=== PATIENT | male | born 1990 | race Caucasian/White ===

== ENCOUNTER 2024-10-21 08:35 | Day surgery (SDC) | payer BC, SELFPAY ==
--- OUTSIDE RECORDS SUMMARY | 2024-10-07 15:08 | XMS_ITS | Clinical Summary ---
Author Organization [facility] Address [address] [facility] [address] [place] [id number] Phone Care Team Providers Care Laborer Syrup Machine Name Role Phone Fred Benítez MD Primary Care Provider Allergies Active Allergy Reactions Criticality Noted Date Comments Bactrim (Sulfamethoxazole-Trimethoprim) Hives 08/13/2014 Medications fluticasone propionate (FLONASE) 50 mcg/actuation nasal spray 2 sprays by Nasal route. Active loratadine-pseud oephedrine (CLARITIN-D 24-HOUR) 10-240 mg per 24 hr tablet Take 1 tablet by mouth. Active multivitamin per tabletIndication s:Annual physical exam Take 1 tablet by mouth daily. 90 tablet 3 08/15/2021 Active cholecalciferol (VITAMIN D3) 25 MCG (1,000 unit) tabletIndication s:Annual physical exam Take 1 tablet (1,000 Units total) by mouth daily. 08/20/2023 Active Active Problems Patient Care Coordination No te Formatting of this note migh t be different from the original. CP 08/20/24 BH 08/20/24? 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 Problem Noted Date Diagnosed Date Bilateral impacted cerumen 08/20/2023 Allergic rhinitis 08/12/2020 Low vitamin D level 08/12/2020 Overview (08/12/2020): 21 08/12/2020 Multiple benign melanocytic nevi 12/12/2015 Overview (08/16/2022): saw derm in [place] Encounters Date Type Department Care Team Description 08/20/2024 9:00 AM EDT Office Visit [facility] [address] [place] [address] Fred Benítez MD Annual physical exam (Primary Dx) 08/18/2024 8:20 AM EDT Nurse Only [facility] [address] [place] [address] Annual physical exam (Primary Dx); Low vitamin D level from Last 3 Months Immunizations Immunization Administration Dates Next Due COVID-19 (Pre-02/25) Pfizer Vaccine, mRNA, PF 08/09/2020 DTP 09/17/1995, 2,03/26/1991,01/14,1990 HPV, unspecified formulation 05/01/2012,01/24/20 12,11/20/2011 Hepatitis A, Unspecified 11/10/2008,11/20/2006 Hepatitis B, unspecified formulation 04/25/1995, 11/16/1994,10/18/1994 Hib, unspecified formulation 03/26/1991,01/14/19 91,1990 MMR 09/17/1995,12/16/1991 Meningococcal MCV4, unspecif ied Formulation 11/20/2006 Meningococcal MCV4O 09/12/2011 Polio, Unspecified Formulation 6,03/18/1991,01/14/1991,11/14 Tdap 12/05/2021,09/12/2011 Varicella 08/31/2011,11/10/2008 Family History Medical History Relation Comments Hyperlipidemia Father Glaucoma Maternal Grandfather Lung cancer Maternal Grandfather Anxiety disorder Sister Relation Status Comments Father Alive Maternal Grandfather Maternal Grandmother Mother Alive Paternal Grandfather Paternal Grandmother Sister Alive Social History Tobacco Use Types Packs/Day Years Used Date Smoking Tobacco: Never Smokeless Tobacco: Never Alcohol Use Standard Drinks/Week Comments Yes 6 (1 standard drink = 0.6 oz pur e alcohol) weekends Education Answer Date Recorded Are you interested in more education? Not on matilde e 08/31/2022 Are you concerned about learning? Not on file 08/31/2022 No 08/31/2022 No 08/31/2022 Digital Access Answer Date Recorded No 10/01/2022 No 10/01/2022 Reliable internet access at home? Not on file 10/01/2022 Device with a working camera? Not on file Sex and Gender Information Value Date Recorded Sex Assigned at Male 08/14/2021 9:14 PM EDT Legal Sex Male 6:37 AM EST Gender Identity Male 08/14/2021 9:14 PM EDT Sexual Orientation Straight 08/14/2021 9: 14 PM EDT Last Filed Vital Signs Vital Sign Reading Time Taken Comments Blood Pressure 115/70 08/20/2024 9:07 AM EDT Pulse 67 08/20/2024 9:07 AM EDT Temperature 36.5 ??C (97.7 ??F) 08/12/2020 8:06 AM ED T Respiratory Rate - - Oxygen Saturation 98% 08/20/2024 9:07 AM EDT Inhaled Oxygen Concentration - - Weight 73.9 kg (163 lb) 08/20/2024 9:07 AM EDT Height 170.2 cm (5' 7 ) 08/20/2024 9:07 AM EDT Body Mass Index 25.53 08/20/2024 9:07 AM EDT Plan of Treatment Upcoming Encounters Date Type Department Care Team (Late st Contact Info) Description 10/12/2024 10:00 AM EDT Appointment [facility] [email or web address] [address] [place] [id number] Fred Benítez MD [address] [facility]. [address] [place] [address] [email or web address] 08/19/2025 8:10 AM EDT Nurse Only [address] [address] 08/20/2025 8:30 AM EDT Appointment [address] [address] Fred Benítez MD [address] [facility]. [address] [place] [address] [email or web address] Health Maintenance Due Date Last Done Comments COVID-19 VACCINE (2023-2 5 season) 2024 05/22/2021, 09/01/2020, 08/09/2020 DEPRESSION SCREENING 08/20/2025 08/20/2024, 08/20/2024 Adult Td,Tdap Booster 12/06/2031 12/05/2021 , 09/12/2011 HIB VACCINES Aged Out 03/26/1991, 01/14/1991, 1990 No longer eligible based on patient's age to complete this topic HEPATITIS A VACCINES Completed 11/10/2008, 11/20/2006 MENINGOCOCCAL VACCINES (ACWY) Completed , 11/20/2006 HEPATITIS C SCREENING Completed 08/12/2020 HIV ONE-TIME SCREENING (18-6 5 YEARS) Completed 08/12/2020 SMOKING STATUS SCREENING (On ce After 26 Yrs) Completed 08/20/2024 MENINGOCOCCAL VACCINES (B) Aged Out N o longer eligible based on patient's age to complete this topic PNEUMOCOCCAL VACCINES (0-49 years) Aged Out No longer eligible b ased on patient's age to complete this topic Medical Devices Not on file Procedures Procedure Name Priority Date/Time Associated Diagnosis Comments 25-OH VITAMIN D Routine 08/18/2024 8:24 AM EDT Annual physical exam Low vitamin D level HEMOGLOBIN A1C Routine 08/18/2024 8:24 AM EDT Annual physical exam LIPID PANEL Routine 08/18/2024 8:24 AM EDT Annual physical exam COMPREHENSIVE METABOLIC PANEL Routine 08/18/2024 8:24 AM EDT Annual physical exam CBC AND DIFFERENTIAL Routine 08/18/2024 8:24 AM EDT Annual physical exam HEPATITIS C ANTIBODY, QUALITATIVE Routine 08/12/2020 11:41 AM EDT Annual physical exam from Last 3 Months or Most Recently Relevant to Health Maintenance Results * Comprehensive metabolic panel (08/18/2024 8:24 AM EDT) Sodium 140 135 - 146 mEq/L [facility] Potassium 4.5 3.5 - 5.3 mEq/L [facility] Chloride 102 98 - 107 mEq/L [facility] CO2 30 20 - 31 mEq/L [facility] Anion Gap 8 4 - 14 [facility] Glucose 91 70 - 99 mg/dL [facility] BUN 19 6 - 20 mg/dL [facility] Creatinine 1.1 0.9 - 1.3 mg/dL [facility] GFR 83 >60 mL/min/1.7 3m^2 [facility] Calcium 9.4 8.4 - 10.2 mg/dL [facility] Corrected Calcium 8.8 8.4 - 10.2 mg/dL [facility] Protein, Total 6.9 6.2 - 8.2 g/dL [facility] Alkaline Phosphatase 46 0 - 130 U/L [facility] Albumin 4.8 3.4 - 5.2 g/dL [facility] ALT (SGPT) 24 0 - 40 U/L [facility] AST (SGOT) 18 0 - 33 U/L [facility] Bilirubin, Total 1.1 0.3 - 1.2 mg/dL [facility] Blood 08/18/2024 8:24 AM EDT 08/18/2024 12:32 PM EDT Narrative Resulting Agency Comment No us Fred Benítez MD LAB BLOOD ORDERABLES Fi nal Result [facility] [address] [place] [address], [facility] * 25-OH vitamin D (08/18/2024 8:24 AM EDT) Vitamin D, 25 [place] 30 30 - 100 ng/mL [facility] Comment: Sufficient: ?>30ng/mL Insufficient: 20-30ng/mL Deficient: ? <20ng/mL Blood 08/18/2024 8:24 AM EDT 08/18/2024 12:32 PM EDT Narrative Resulting Agency Comment No Fred Benítez MD LAB BLOOD ORDERABLES Fi nal Result Performing Organization Address City/[facility]/ZIP Co de Phone Number ELISSA CLOVIS [facility] [address] [facility] [address] [place] [address], [facility] * CBC and differential (08/18/2024 8:24 AM EDT) WBC 5.3 3.9 - 11.0 k/uL ELISSA CLOVIS [employer] [facility] RBC 5.25 4.14 - 5.77 M/uL ELISSA CLOVIS [employer] [facility] HGB 16.1 13.0 - 17.0 g/dL [facility] HCT 45.9 40.0 - 51.0 % [facility] [employer] [facility] MCV 87 80 - 100 fL [facility] [employer] [facility] MCH 31 27 - 33 pg [facility] MCHC 35 31 - 36 g/dL [facility] RDW-CV 12.3 11.6 - 14.8 % [facility] [employer] [facility] PLT 242 142 - 424 K/uL [facility] Neut# 2.7 2.0 - 6.9 K/uL ELISSA [facility] Lymph# 1.8 0.6 - 3.4 K/uL ELISSA [facility] [place]# 0.6 0.0 - 0.9 K/uL ELISSA [facility] Eo# 0.1 0.0 - 0.7 K/uL ELISSA [facility] Baso# 0.0 0.0 - 0.2 K/uL ELISSA CLOVIS [employer] [facility] Blood 08/18/2024 8:24 AM EDT 08/18/2024 12:32 PM EDT Narrative Resulting Agency Comment No Fred Benítez MD LAB BLOOD ORDERABLES Fi nal Result [facility] [address] [facility] [address] [place] [address], [facility] * Hemoglobin A1c (08/18/2024 8:24 AM EDT) % HGB A1C 5.1 0.0 - 5.6 % [facility] Comment: </=5.6 ? - Normal 5.7 - 6.4 - Increased diabetes risk >/= 6.5 ??- Suggests diabetes </= 7.0 ??- ADA therapeutic goal when diabetes is present, this target should be relaxed for some individuals depending on age, state of health and risk for low blood sugar. Mean Glucose 84 mg/dL [facility] Blood 08/18/2024 8:24 AM EDT 08/18/2024 12:32 PM EDT Narrative Resulting Agency Comment No Fred Benítez MD LAB BLOOD ORDERABLES Fi nal Result Performing Organization Address [facility] de Phone Number [facility] [address] [place] [address] * Lipid panel (08/18/2024 8:24 AM EDT) Cholesterol 190 <200 mg/dL [facility] Triglycerides 132 <150 mg/dL [facility] Cholesterol, HDL 42 >40 mg/dL [facility] LDL Cholesterol, Calculated 122 <129 mg/dL [facility] Cholesterol/HDL Ratio 4.52 <4.96 [facility] Blood 08/18/2024 8:24 AM EDT 08/18/2024 12:32 PM EDT Narrative Resulting Agency Comment No Fred Benítez MD LAB BLOOD ORDERABLES Fi nal Result Performing Organization Address [facility] Co de Phone Number [facility] [address] [place] [address] * Hepatitis C antibody, qualitative (08/12/2020 11:41 AM EDT) HepC AB Non Reactive Non Reactive;E quivocal;R eactive [facility] Blood 08/12/2020 11:4 1 AM EDT 08/12/2020 11:41 AM EDT Fred Benítez MD LAB BLOOD ORDERABLES Ed [place]ed [place] [address] from Last 3 Months or Most Recently Relevant to Health Maintenance Insurance [employer] Care Teams Laborer Syrup Machine Relationship Specialty Start Date End Date Fred Benítez MD [address] [facility]. [address] [place] [address] [email or web address] PCP - General Internal Medicine 08/12/20 Additional Source Comments The information contained in this document represents components of the legal health record. It is not the complete legal health record.[facility]
[2024-10-14 16:29] VITALS: BMI 26.2
[2024-10-21] VITALS (7 sets, daily range): BP systolic 92–119; BP diastolic 44–69; PULSE 52–69; RESP 16; TEMP 36.5–36.6; O2SAT 99–100; BMI 25.5
[2024-10-21] MEDS: Lactated Ringers 1,000 ML 100 ML IVCONT (10:03)
--- NOTE | 2024-10-21 11:00 | HO.ANESPROP2 ---
Documented by User: Jenny Lewis NP 10/20/24 08:48 HPI - Anesthesia Eval Consult details Narrative: 34yo M for Bilateral Medial Rectus Eye Muscle Recession/Resection [facility] Past Medical History Medical History (Updated 10/14/24 @ 15:22 by Kristen Ray RN) Vitamin D deficiency Allergic rhinitis Surgical History Surgical History (Updated 10/21/24 @ 09:42 by Mayra Dee RN) Hx of appendectomy Social History Social History Patient Tobacco Use Status: Former Tobacco user Use of substances other than those prescribed or required for medical reasons: No Advance Directives: No Advance Directives Information Provided: Yes Poor oral hygiene: No Meds Allergies Allergy/AdvReac Type Severity Reaction Status Date / Time sulfamethoxazole (From Allergy Unknown Verified 10/14/24 15:23 Bactrim) trimethoprim (From Bactrim) Allergy Unknown Verified 10/14/24 15:23 Home Medications ?Medication ?Instructions ?Recorded ?Confirmed ?Last Taken ?Type cholecalciferol (vitamin D3) 25 25 mcg PO DAILY 10/14/24 10/14/24 Unknown History mcg (1,000 unit) capsule (Vitamin D3) fluticasone propionate 50 2 spray intranasal DAILY 10/14/24 10/14/24 Unknown History mcg/actuation nasal spray,suspension (Flonase Allergy Relief) loratadine-pseudoephedrine ER 10 1 tab PO DAILY PRN Allergy Symptoms 10/14/24 10/14/24 Unknown History mg-240 mg tablet,extended [id number] (Claritin-D 24 Hour) multivitamin 1 tab PO DAILY 10/14/24 10/14/24 Unknown History Exam Height,Weight and Vital Signs: Height 5 ft 7 in Weight 75.9 kg Assessment and Plan Assessment Anesthesia Assessment: Chart Reviewed Documented by User: Muriel Abraham DO 10/21/24 11:37 [facility] Past Medical History Medical History (Updated 10/14/24 @ 15:22 by Kristen Ray RN) Vitamin D deficiency Allergic rhinitis Family History Family history of problems with anesthesia: No Surgical History Surgical History (Updated 10/21/24 @ 09:42 by Mayra Dee RN) Hx of appendectomy History of Problems with Anesthesia: No Social History Social History Patient Tobacco Use Status: Former Tobacco user Use of substances other than those prescribed or required for medical reasons: No Advance Directives: No Advance Directives Information Provided: Yes Poor oral hygiene: No Meds Allergies Allergy/AdvReac Type Severity Reaction Status Date / Time sulfamethoxazole (From Allergy Unknown Verified 10/14/24 15:23 Bactrim) trimethoprim (From Bactrim) Allergy Unknown Verified 10/14/24 15:23 Home Medications ?Medication ?Instructions ?Recorded ?Confirmed ?Last Taken ?Type cholecalciferol (vitamin D3) 25 25 mcg PO DAILY 10/14/24 10/14/24 Unknown History mcg (1,000 unit) capsule (Vitamin D3) fluticasone propionate 50 2 spray intranasal DAILY 10/14/24 10/14/24 Unknown History mcg/actuation nasal spray,suspension (Flonase Allergy Relief) loratadine-pseudoephedrine ER 10 1 tab PO DAILY PRN Allergy Symptoms 10/14/24 10/14/24 Unknown History mg-240 mg tablet,extended [id number] (Claritin-D 24 Hour) multivitamin 1 tab PO DAILY 10/14/24 10/14/24 Unknown History Exam Exam Date and Time: 10/21/24 1100 Height,Weight and Vital Signs: Height 5 ft 7 in Weight 75.9 kg Vital Signs Temperature 97.7 F 10/21/24 09:56 Pulse Rate 56 10/21/24 09:56 Respiratory Rate 16 10/21/24 09:56 Blood Pressure 119/69 10/21/24 09:56 Pulse Oximetry 99 10/21/24 09:56 Oxygen Delivery Method Room Air 10/21/24 09:56 Temperature 97.7 F 10/21/24 09:56 Pulse Rate 56 10/21/24 09:56 Respiratory Rate 16 10/21/24 09:56 Blood Pressure 119/69 10/21/24 09:56 Pulse Oximetry 99 10/21/24 09:56 Oxygen Delivery Method Room Air 10/21/24 09:56 Airway Mallampati Class: I TM Dist: <=3cm Neck ROM: Full Loose/Missing/Broken Teeth: No (patient denies any loose or broken teeth) Heart: S1S2 Lungs: CTAB Assessment and Plan Assessment Anesthesia Assessment: Anesthesia Plan Discussed and Chart Reviewed Final Anesthetic Review Family History of Problems with Anesthesia: No History of Problems with Anesthesia: No NPO: Yes ASA Class: I Final Preanesthetic Review: No Changes in Pt Med Stat, Meds/Allgs Chart Reviewed, Consent Obtained/Reviewed and Anes Risks/Benef Reviewed Patient Risk: Low Procedure Risk: Low Anesthetic Plan Anesthetic Plan: GA and Agree w/ Assess. and Plan Disposition: Standard PACU
[2024-10-21] MEDS: oxyCODONE HCl Immed Release 5 MG TABLET PO (12:47)
[2024-10-21] MEDS: Acetaminophen 325 MG TABLET 650 MG PO (12:47)
--- NOTE | 2024-10-21 13:24 | P.OPHTHAL_ITS ---
Ophthalmology Operative Note Date of Service: 10/21/24 Narrative: Diagnosis esotropia. Postoperative diagnosis same. Procedure bilateral medial rectus recessions of [address] Carey. Anesthesia general. Complications none. The patient was brought to the operative room placed under general anesthesia. The eyes were prepped and draped in the usual sterile ophthalmic fashion. A lid speculum was placed in the right eye and incisions made at bare sclera in the inferonasal fornix. The medial rectus was hooked and secured with a double-armed Vicryl suture. The muscle was disinserted from the globe and reattached to a position 5 mm behind the original insertion using a h ang back technique. Conjunctiva was closed with interrupted Vicryl sutures. An identical procedure was then performed on the left eye. The patient was then awoken from general anesthesia and discharged to postoperative recovery in good condition.
== END 2024-10-21 13:54 | disposition home or self-care (01) ==
PROVIDERS: Visit Provider Ophthalmology
PROC: (CPT 67311; principal; 2024-10-21 11:50)
DX: H53.2 Diplopia (principal); H50.00 Unspecified esotropia; E55.9 Vitamin D deficiency, unspecified; J30.9 Allergic rhinitis, unspecified; D22.9 Melanocytic nevi, unspecified; Z79.51 Long term (current) use of inhaled steroids; Z79.899 Other long term (current) drug therapy; Z88.2 Allergy status to sulfonamides; Z87.891 Personal history of nicotine dependence
CPT/HCPCS: 67311; J1100; J1596; J1885; J2003; J2250; J2405; J2704; J3010